=== PATIENT | male | born 1975 | race Caucasian/White ===

== ENCOUNTER 2017-05-20 13:43 | Emergency (ER) | payer SELFPAY | END 2017-05-20 18:25 | disposition home or self-care (01) | LOC: FTE 13:43 | DX: S01.01XA Laceration without foreign body of scalp, initial encounter (principal); S09.90XA Unspecified injury of head, initial encounter; W23.1XXA Caught, crushed, jammed, or pinched between stationary objects, initial encounter; Y92.9 Unspecified place or not applicable | CPT/HCPCS: 70450; 99284-25 ==

== ENCOUNTER 2017-05-27 09:34 | Emergency (ER) | payer BC | END 2017-05-27 11:29 | disposition home or self-care (01) | LOC: E/R 09:34 | DX: Z48.02 Encounter for removal of sutures (principal) | CPT/HCPCS: 99281 ==